=== PATIENT | female | born 1965 | race Caucasian/White ===

== ENCOUNTER 2016-09-23 16:19 | Emergency (ER) ==
[2016-09-23 16:36] VITALS: TEMP 98.7; BMI 31.3
[2016-09-23] MEDS ORDERED: MORPHINE 4 MG/ML SYRINGE IM STA (16:57)
[2016-09-23] MEDS ORDERED: ZOFRAN 4 MG/2 ML IM STA (16:57)
[2016-09-23] MEDS ORDERED: BOOSTRIX IM ONE (16:57)
--- NOTE | 2016-09-23 17:00 | CT ---
EXAM: CT brain without contrast HISTORY: Head trauma TECHNIQUE: Multi-slice transaxial helical with coronal and sagital reformated images COMPARISON: None FINDINGS: The midline structures are central. The ventricles are neither dilated nor displaced. T he brain attenuation with its diop-white matter interface is normal. No acute intraparenchymal or ex traaxial hemorrhagic collections are detected. A large cephalohematoma is detected over the posterior aspect of the occipital and right parietal maury ne. No radiopaque foreign bodies are appreciated in the scalp soft tissues. A nondisplaced fractur e courses the right occipital bone. No subjacent pneumocephalus is appreciated. The visible paranasa l sinuses and mastoid air cells are clear. IMPRESSION: Nondisplaced fracture, right occipital bone. No acute intracranial hemorrhage or pneumocephalus. Cephalohematoma, right parietal occipital region.
--- NOTE | 2016-09-23 17:00 | ED.PDOC ---
General ED Provider: Dr. STEFFI CAVAZOS Chief Complaint: Fall Stated Complaint: Patient states she was tripped by her dog falling hitting the back of her head. Denies any loss of conciousness. Had some bleeding. Has light sensitivity and nausea with severe headache 10/10 Time Seen by Physician: 16:58 Mode of Arrival: Wheelchair Information Source: Patient, Family Exam Limitations: No limitations Primary Care Provider: CLAUDY BAUTISTA Nursing and Triage Documentation Reviewed and Agree: Yes Trauma/Injury Complaint Exam - Head Injury Complaint/Exam Location of Pain: Reports: Scalp (occipital area ) Mechanism of Injury: Reports: Trauma Onset/Duration: Today Symptoms Are: Still present Initial Severity: Severe Current Severity: Severe Character: Reports: Dull, Pressure Aggravating: Reports: Other (light) Alleviating: Reports: None Associated Signs and Symptoms: Reports: Nausea, Vomiting. Denies: Confusion, Epistaxis, Dental malocclusion, Neck pain Loss of Consciousness: None Related History: Denies: Similar episode, Occupational injury, Anticoagulants SDH Risk Factors: Absent: Male, Seizures, Elderly, Recent trauma, Anticoagulant use, Coagulopathy Cervical Spine Injury Risk Factors: Present: None Related Surgical History: Reports: None Head Injury Findings: Absent: [place] eyes, Meningeal signs, Nystagmus, Neck pain Glascow Coma Scale (see protocol): 15 Focal Weakness: Present: None Focal Sensory Loss: Present: None Gait: Normal Gag Reflex Present: No Finger to Nose: Normal Rhomberg Test Positive: No Babinski Sign: Negative Right, Negative Left Heel to Toe Normal: Yes Nexus Low Risk Criteria: No post-midline CS tender, No evidence of intoxicat., No Altered LOC, No focal neuro deficit, No distracting injuries Head Picture: 1 - contustion, Abrassion Differential Diagnoses: Cervical Fracture, Intracranial Bleed, Trauma Review of Systems - Review Of Systems Constitutional: Reports: No symptoms Eyes: Reports: Photophobia Ears, Nose, Mouth, Throat: Reports: No symptoms Respiratory: Reports: No symptoms Cardiac: Reports: No symptoms GI: Reports: Nausea, Vomiting : Reports: No symptoms Musculoskeletal: Reports: No symptoms Skin: Reports: No symptoms Neurological: Reports: Anxiety, Headache Endocrine: Reports: No symptoms Hematologic/Lymphatic: Reports: No symptoms All Other Systems: Reviewed and Negative Past Medical History - Past Medical History Previously Healthy: Yes Endocrine: Reports: Hypothyroid Cardiovascular: Reports: None Respiratory: Reports: None Hematological: Reports: None Gastrointestinal: Reports: None Genitourinary: Reports: None Neuro/Psych: Reports: None Musculoskeletal: Reports: None Cancer: Reports: None Last Menstrual Period: none - Surgical History General Surgical History: Reports: , Orthopedic (carple tunnel ) - Family History Family History: Reports: None - Social History Smoking Status: Never smoker Hx Substance Use: No Alcohol Screening: None - Immunizations Tetanus Shot up to Date: No Physical Exam - Physical Exam Appearance: Ill-appearing Ill-appearing: Moderate Pain Distress: Severe Eyes: KATIE, EOMI, Conjunctiva clear ENT: Ears normal, Nose normal, Oropharynx normal Neck: Supple Respiratory: Airway patent, Breath sounds clear, Breath sounds equal, Respirations nonlabored Cardiovascular: RRR, Pulses normal, No rub, No murmur GI/: Soft, Nontender, No masses, Bowel sounds normal, No Organomegaly Skin: Warm, Dry Neurological: Sensation intact, Motor intact, Reflexes intact, Cranial nerves intact, Alert, Oriented Psychiatric: Anxious Interpretation - Radiology Interpretation Radiology Interpretation By: Radiologist Radiology Results: Positive (Occipital bone fracture.) Exam Interpreted: CT Scan (Head ) Re-Evaluation - Re-Evaluation Time of Re-Evaluation: 17:10 Vital Signs Stable: Yes (138/86) Pain Level: 10/10 Additional Comments: vomiting. Physician Notification - Case Discussed Physician Notified: Dr Bautista Time of Notification: 17:50 (Transfer to [facility]) Physician Notified: Dr rios Time of Notification: 18:05 (Ok to transfer to [facility] ) Critical Care Note - Critical Care Note Total Time (mins): 20 Course - Course Orders, Labs, Meds: Orders Category Date Time Status ED IV/MEDIPORT/POWERPORT .ONCE EMERGENCY 09/23/16 17:54 Active 0.9 % Sodium Chloride [Saline Flush] MEDS 09/23/16 17:54 Discontinued 1 syr IVF PRN PRN Diphth,Pertuss(Acell),Tet Vac [Boostrix] MEDS 09/23/16 16:57 Discontinued 0.5 ml IM .ONCE ONE Morphine Sulfate [Morphine 4 mg/ml Syringe] MEDS 09/23/16 16:57 Discontinued 4 mg IM ONCE STA Ondansetron HCl/Pf [Zofran 4 mg/2 ml] MEDS 09/23/16 16:57 Discontinued 4 mg IM ONCE STA Promethazine HCl [Phenergan 25 mg/ml Vial] MEDS 09/23/16 17:54 Discontinued 25 mg .ROUTE .STK-MED ONE Promethazine HCl [Phenergan 25 mg/ml Vial] 25 mg MEDS 09/23/16 17:54 Discontinued 0.9 % Sodium Chloride [Sodium Chloride] 50 ml IV ONCE Sodium Chloride 0.9% [Sodium Chloride] 1,000 ml MEDS 09/23/16 17:[address] CERVICAL SPINE W/O CONTRAST Stat RADS 09/23/16 17:[address] HEAD W/O CONTRAST Stat RADS 09/23/16 16:33 Completed Medications Discontinued Medications Generic Name Dose Route Start Last Admin Trade Name Freq PRN Reason Stop Dose Admin Diphtheria/Pertussis/Tetanus Vacc 0.5 ml 09/23/16 16:57 09/23/16 17:12 Boostrix IM 09/23/16 16:58 0.5 ml .ONCE ONE Administration Promethazine HCl 25 mg/ Sodium 51 mls @ 75 mls/hr 09/23/16 17:54 09/23/16 18: 04 Chloride IV 09/23/16 18:34 75 mls/hr ONCE STA Administration Sodium Chloride 1,000 mls @ 1,000 mls/hr 09/23/16 17:54 09/23/16 18:05 Sodium Chloride IV 09/23/16 18:53 1,000 mls/hr BOLUS STA Administration Morphine Sulfate 4 mg 09/23/16 16:57 09/23/16 17:11 Morphine 4 Mg/Ml Syringe IM 09/23/16 16:58 4 mg ONCE STA Administration Ondansetron HCl 4 mg 09/23/16 16:57 09/23/16 17:12 Zofran 4 Mg/2 Ml IM 09/23/16 16:58 4 mg ONCE STA Administration Sodium Chloride 1 syr 09/23/16 17:54 Saline Flush IVF PRN PRN To flush IV Vital Signs: Temp Pulse Resp BP Pulse Ox 09/23/16 17:03 60 18 136/86 99 09/23/16 16:20 98.7 F 76 20 172/124 H 98 Departure - Departure Time of Disposition: 18:16 Disposition: TSF SHORT-TRM HOSP Discharge Problem: Falls Occipital bone fracture Qualifiers: Encounter type: initial encounter Fracture type: closed Occipital fracture type : unspecified fracture of occiput Laterality: unspecified laterality Qualifier Code: (S02.119A) Unspecified fracture of occiput, initial encounter for closed fracture Condition: Good Pt referred to PMD for follow-up: No Allergies/Adverse Reactions: Allergies No Known Allergies Allergy (Verified 09/23/16 16:25) Home Medications: Ambulatory Orders Levothyroxine Sodium [Synthroid] 100 mcg PO DAILY 09/23/16 Pt. Stabilized Within Hospital's Capabilities/Transferred To: [facility] Transfer Form Completed: Yes Disposition Discussed With: Patient, Family
[2016-09-23 17:03] VITALS: BP 136/86
--- NOTE | 2016-09-23 17:44 | CT ---
EXAM: CT cervical spine. HISTORY: Trauma, neck pain. TECHNIQUE: CT cervical spine without contrast. Detailed axial sections. Coronal and sagittal re-f ormations. COMPARISON: None FINDINGS: No acute fracture of the cervical spine is identified. Normal vertebral body height. Degenerative endplate and facet disease is apparent. There is approximately 0.2 cm posterior spondylolisthesis o f C4 on C5 which may be related to the degenerative changes. There is no traumatic central canal st enosis suggested. No paraspinal hematoma. Redemonstration of a nondisplaced right occipital bone f racture. IMPRESSION: 1. No acute fracture of the cervical spine is identified. 2. Redemonstration of a nondisplaced right occipital bone fracture.
[2016-09-23] MEDS ORDERED: SODIUM CHLORIDE 1,000 ML IV STA (17:54)
[2016-09-23] MEDS ORDERED: PHENERGAN 25 MG/ML VIAL 25 MG in SODIUM CHLORIDE 50 ML IV STA (17:54)
[2016-09-23] MEDS ORDERED: PHENERGAN 25 MG/ML VIAL ONE (17:54)
== END 2016-09-23 18:38 | disposition short-term general hospital (02) ==
LOC: ED 16:19
DX: S02.119A Unspecified fracture of occiput, initial encounter for closed fracture (principal); W01.0XXA Fall on same level from slipping, tripping and stumbling without subsequent striking against object, initial encounter
CPT/HCPCS: 90471; 96361; 96365; 96372; 99285

== ENCOUNTER 2016-09-23 18:43 | Outpatient (CLI) ==
[2016-09-23 16:36] VITALS: BMI 31.3
== END 2016-09-23 18:44 | disposition short-term general hospital (02) ==
LOC: AMBL 18:43
PROVIDERS: ATTEND Internal Medicine Geriatric Medicine
DX: S02.119A Unspecified fracture of occiput, initial encounter for closed fracture (principal); S01.01XA Laceration without foreign body of scalp, initial encounter; W19.XXXA Unspecified fall, initial encounter